=== PATIENT | male | born 2000 | race Caucasian/White ===

== ENCOUNTER 2023-12-21 10:58 | Emergency (ER) | payer BC ==
[~2023-12-21] VITALS: Ht 182.9 cm; Wt 86.4 kg
[2023-12-21 11:06] VITALS: TEMP 98.1
[2023-12-21] MEDS ORDERED: Ketorolac 30 MG/ML VIAL IV ONE (11:30)
[2023-12-21] MEDS ORDERED: NS 1,000 ML IV ONE (11:30)
[2023-12-21] MEDS ORDERED: Ondansetron 4 MG/2 ML VIAL IV ONE (11:30)
[2023-12-21 11:51] LABS: URINE APPEARANCE CLEAR (CLEAR/HAZY); URINE BLOOD NEGATIVE (NEGATIVE); URINE COLOR YELLOW (YELLOW); URINE GLUCOSE NEGATIVE (NEGATIVE); URINE KETONE NEGATIVE (NEGATIVE); URINE NITRATE NEGATIVE (NEGATIVE); URINE PROTEIN(semi-quant) NEGATIVE (NEGATIVE); URINE UROBILINOGEN 0.2 E.U/dL (0.2-1.0)
[2023-12-21 11:58] LABS: BASO # 0.1 K/mm3 (0.0-0.2); BASO % 0.8 % (0.0-2.0); EOS # 0.2 K/mm3 (0.0-0.7); EOS % 2.5 % (0.0-4.0); GRAN # 3.9 K/mm3 (1.4-6.5); GRAN % 60.5 % (42.2-75.2); HEMATOCRIT 48.4 % (42.0-52.0); HEMOGLOBIN 16.4 g/dl (13.5-18.0); LYMPH # 1.7 K/mm3 (1.2-3.4); LYMPH % 25.6 % (20.0-51.0); MEAN CELL VOLUME 97 fl (80.0-100.0); MEAN CORPUSCULAR HEMOGLOBIN 33 pg (27-31); MEAN CORPUSCULAR HGB CONC 34 g/dl (33.0-37.0); MEAN PLATELET VOLUME 9.5 fl (7.4-10.4); MONO # 0.7 K/mm3 (0.1-0.6); MONO % 10.1 % (1.7-9.3); PLATELET COUNT 245 K/mm3 (130-400); RED BLOOD COUNT 5.01 M/mm3 (4.20-5.60); REDCELL DISTRIBUTION WIDTH-CV 11.9 % (11.5-14.5)
[2023-12-21 12:09] LABS: ALBUMIN 5.2 g/dL (3.5-5.0); BILIRUBIN,TOTAL 0.5 mg/dL (0.2-1.2); C-REACTIVE PROTEIN 0.07 mg/dL (0.00-0.50); CALCIUM 10.2 mg/dL (8.4-10.2); CREATININE, serum 0.9 mg/dL (0.72-1.25); POTASSIUM 4.1 mEq/L (3.5-4.5); TOTAL PROTEIN 8.6 g/dl (6.2-8.1)
[2023-12-21 12:13] LABS: COLLECTION METHOD CLEAN CATCH
[2023-12-21 13:58] VITALS: BP 128/81; PULSE 80
== END 2023-12-21 14:00 | disposition home or self-care (01) ==
LOC: COL.ER 10:58
PROVIDERS: Emergency Medicine
DX: R10.31 Right lower quadrant pain (principal)
CPT/HCPCS: J1885; J2405; J7030